=== PATIENT | female | born 1990 | race Caucasian/White ===

== ENCOUNTER → 2024-03-14 15:47 | Outpatient (REF) | payer BC, SELFPAY ==
[2024-03-14 17:39] LABS: % Basophils 0.7 % (0-2); % Eosinophils 1.6 % (0-6); % Immature Granulocytes 0.2 % (0-0.5); % Lymphocytes 37.2 % (20.5-51.1); % Monocytes 7.5 % (1.7-9.3); % Neutrophils 52.8 % (42.2-75.2); Absolute Eosinophils 0.1 10^3/uL (0-0.7); Absolute Monocytes 0.4 10^3/uL (0.1-0.6); Absolute Neutrophils 2.9 10^3/uL (1.4-6.5); Hematocrit 36.7 % (37.0-47.0); Hemoglobin 12.4 g/dL (12.0-16.0); Mean Corp Hgb Conc. 33.8 g/dL (33.0-37.0); Mean Corpuscular Hgb 29.2 pg (27.0-31.0); Mean Corpuscular Volume 86.4 fL (81.0-99.0); Mean Platelet Volume 10.8 fL (7.4-10.4); Nucleated Red Blood Cells % 0 %; Platelet Count 273 10^3/uL (130-400); Red Blood Cell Count 4.25 10^6/uL (4.20-5.40); Red Cell Dist. Width 12.7 % (11.5-14.5); White Blood Cell Count 5.5 10^3/uL (4.8-10.8)
[2024-03-14 18:01] LABS: ALT (SGPT) < 10 U/L (0-35); AST (SGOT) 19 U/L (14-36); Albumin 4.8 g/dl (3.5-5.0); Alkaline Phosphatase 46 U/L (38-126); Blood Urea Nitrogen 7 mg/dl (7-17); Calcium 9.9 mg/dl (8.4-10.2); Carbon Dioxide 27 mmol/L (22-30); Chloride 102 mmol/L (98-107); Glucose 86 mg/dl (70-99); HDL Cholesterol 74 mg/dl; LDL Cholesterol, Calculated 96 mg/dl; Potassium 4.6 mmol/L (3.5-5.1); Sodium 136 mmol/L (135-145); Total Bilirubin 0.9 mg/dl (0.2-1.3); Total Cholesterol 185 mg/dl (50-199); Total Protein 7.4 g/dl (6.3-8.2); Triglyceride 76 mg/dl (10-149); Very Low Density Lipoprotein 15 mg/dl (0-30); eGFR > 60.00
[2024-03-14 18:33] LABS: TSH Reflex To Free T4 1.49 uIU/ml (0.47-4.68)
[2024-03-14 18:38] LABS: Ferritin 8.9 ng/ml (6.24-137)
[2024-03-14 18:50] LABS: Hepatitis B Core Ab, Total Negative (Negative); Hepatitis B Surface Antibody Positive
[2024-03-14 19:09] LABS: Folate 19.8 ng/ml (2.76-20); Vitamin B12 589 pg/ml (239-931)
[2024-03-15 10:07] LABS: Glycohemoglobin (HgbA1c) 5.1 % (4.0-5.6)
[2024-03-17 04:08] LABS: Vitamin D 1,25 Dihydroxy 58.2 pg/mL (19.9-79.3)
== END ==
LOC: REG 15:47
PROVIDERS: ATTENDING PHYSICIAN Nurse Practitioner Family
DX: Z13.220 Encounter for screening for lipoid disorders (principal); Z13.29 Encounter for screening for other suspected endocrine disorder; Z13.1 Encounter for screening for diabetes mellitus; Z13.0 Encounter for screening for diseases of the blood and blood-forming organs and certain disorders involving the immune mechanism; Z13.21 Encounter for screening for nutritional disorder
CPT/HCPCS: 36415; 80053; 80061; 82607; 82652; 82728; 82746; 83036; 84443; 85025; 86704; 86706

== ENCOUNTER → 2024-04-17 10:46 | Outpatient (REF) | payer BC, SELFPAY | LOC: RAD 10:46 | PROVIDERS: ATTENDING PHYSICIAN Obstetrics & Gynecology; FAMILY PHYSICIAN Nurse Practitioner Family | DX: O26.851 Spotting complicating pregnancy, first trimester (principal) | CPT/HCPCS: 76801 ==

== ENCOUNTER → 2024-04-19 14:54 | Outpatient (REF) | payer BC, SELFPAY ==
[2024-04-19 16:45] LABS: % Basophils 0.5 % (0-2); % Eosinophils 1.5 % (0-6); % Immature Granulocytes 0.2 % (0-0.5); % Lymphocytes 33.1 % (20.5-51.1); % Neutrophils 58.7 % (42.2-75.2); Absolute Eosinophils 0.1 10^3/uL (0-0.7); Absolute Lymphocytes 1.8 10^3/uL (1.2-3.4); Absolute Monocytes 0.3 10^3/uL (0.1-0.6); Absolute Neutrophils 3.2 10^3/uL (1.4-6.5); Hemoglobin 13.3 g/dL (12.0-16.0); Mean Corp Hgb Conc. 34.1 g/dL (33.0-37.0); Mean Corpuscular Hgb 29.9 pg (27.0-31.0); Mean Corpuscular Volume 87.6 fL (81.0-99.0); Mean Platelet Volume 10.3 fL (7.4-10.4); Nucleated Red Blood Cells % 0 %; Platelet Count 307 10^3/uL (130-400); Red Blood Cell Count 4.45 10^6/uL (4.20-5.40); Red Cell Dist. Width 12.3 % (11.5-14.5); White Blood Cell Count 5.5 10^3/uL (4.8-10.8)
[2024-04-19 16:46] LABS: Urine Albumin Negative (Neg - Trace); Urine Bilirubin Negative (Negative); Urine Character Clear (Clear); Urine Color Yellow; Urine Glucose Negative (Negative); Urine Ketone Negative (Negative); Urine Leukocyte Negative (Negative); Urine Nitrite Negative (Negative); Urine Occult Blood 2+ (Negative); Urine Urobilinogen Negative (Neg - 1+)
[2024-04-19 17:00] LABS: Urine Bacteria Few (Negative); Urine White Cell 0-2 /HPF (0-5)
[2024-04-20 07:38] LABS: Glycohemoglobin (HgbA1c) 5.1 % (4.0-5.6)
[2024-04-20 18:30] LABS: Hepatitis B Surface Antigen Negative (Negative)
[2024-04-20 18:33] LABS: Hepatitis C Antibody Negative (Negative)
[2024-04-20 20:41] LABS: Rubella Positive
[2024-04-21 11:21] LABS: Syphilis/T. pallidum Ab Reflex Negative (Negative)
== END ==
LOC: REG 14:54
PROVIDERS: ATTENDING PHYSICIAN Nurse Practitioner Family
DX: Z32.01 Encounter for pregnancy test, result positive (principal)
CPT/HCPCS: 36415; 80055; 81003; 81015; 83036; 84702; 86803; 86850; 86900; 86901; 87086

== ENCOUNTER → 2024-04-21 06:26 | Outpatient (REF) | payer BC, SELFPAY | LOC: REG 06:26 | PROVIDERS: ATTENDING PHYSICIAN Nurse Practitioner Family; FAMILY PHYSICIAN Nurse Practitioner Family | DX: Z32.01 Encounter for pregnancy test, result positive (principal) | CPT/HCPCS: 36415; 84702 ==

== ENCOUNTER → 2024-08-01 07:57 | Outpatient (REF) | payer BC, SELFPAY ==
[2024-08-01 10:39] LABS: Hepatitis B Surface Antigen Negative (Negative)
[2024-08-01 10:58] LABS: Hepatitis B Core Ab, Total Negative (Negative); Hepatitis B Surface Antibody Positive
[2024-08-01 11:01] LABS: Urine Albumin Negative (Neg - Trace); Urine Bilirubin Negative (Negative); Urine Character Clear (Clear); Urine Color Yellow; Urine Glucose Negative (Negative); Urine Ketone Negative (Negative); Urine Leukocyte Trace (Negative); Urine Nitrite Negative (Negative); Urine Occult Blood Negative (Negative); Urine Urobilinogen Negative (Neg - 1+)
[2024-08-01 11:16] LABS: Urine Squamous Cell 16-20 /LPF (Few); Urine Urothelial Cell 0-2 /LPF (FEW)
[2024-08-01 11:17] LABS: Urine Bacteria Moderate (Negative)
[2024-08-01 11:59] LABS: Glycohemoglobin (HgbA1c) 4.9 % (4.0-5.6)
[2024-08-01 14:18] LABS: HIV Combo Negative (Negative)
== END ==
LOC: REG 07:57
PROVIDERS: ATTENDING PHYSICIAN Obstetrics & Gynecology; FAMILY PHYSICIAN Nurse Practitioner Family
DX: Z32.01 Encounter for pregnancy test, result positive (principal)
CPT/HCPCS: 36415; 81003; 81015; 83036; 86704; 86706; 86900; 86901; 87340; 87389

== ENCOUNTER → 2024-08-02 13:21 | Outpatient (REF) | payer BC, SELFPAY | LOC: CPAP 13:21 | PROVIDERS: ATTENDING PHYSICIAN Obstetrics & Gynecology | DX: Z11.3 Encounter for screening for infections with a predominantly sexual mode of transmission (principal) | CPT/HCPCS: 81513; 87481; 87491; 87591; 87661 ==

== ENCOUNTER → 2024-08-23 07:15 | Outpatient (REF) | payer BC, SELFPAY | LOC: PNTC 07:15 | PROVIDERS: ATTENDING PHYSICIAN Obstetrics & Gynecology | DX: Z36.0 Encounter for antenatal screening for chromosomal anomalies (principal); Z36.82 Encounter for antenatal screening for nuchal translucency | CPT/HCPCS: 36415; 76801; 76813; 81420 ==

== ENCOUNTER → 2024-11-22 08:49 | Outpatient (REF) | payer BC, SELFPAY ==
[2024-11-22 10:54] LABS: % Immature Granulocytes 0.2 % (0-0.5); % Lymphocytes 33.3 % (20.5-51.1); % Monocytes 5.1 % (1.7-9.3); % Neutrophils 59.4 % (42.2-75.2); Absolute Eosinophils 0.1 10^3/uL (0-0.7); Absolute Lymphocytes 1.5 10^3/uL (1.2-3.4); Absolute Monocytes 0.2 10^3/uL (0.1-0.6); Absolute Neutrophils 2.7 10^3/uL (1.4-6.5); Hemoglobin 10.8 g/dL (12.0-16.0); Mean Corp Hgb Conc. 33.8 g/dL (33.0-37.0); Mean Corpuscular Hgb 30.5 pg (27.0-31.0); Mean Corpuscular Volume 90.4 fL (81.0-99.0); Mean Platelet Volume 10.8 fL (7.4-10.4); Nucleated Red Blood Cells % 0 %; Platelet Count 192 10^3/uL (130-400); Red Blood Cell Count 3.54 10^6/uL (4.20-5.40); Red Cell Dist. Width 12.6 % (11.5-14.5); White Blood Cell Count 4.5 10^3/uL (4.8-10.8)
[2024-11-22 11:22] LABS: 1 Hour after 50gm 124 mg/dl
[2024-11-24 11:39] LABS: Syphilis/T. pallidum Ab Reflex Negative (Negative)
== END ==
LOC: REG 08:49
PROVIDERS: ATTENDING PHYSICIAN Obstetrics & Gynecology; FAMILY PHYSICIAN Nurse Practitioner Family
DX: Z34.93 Encounter for supervision of normal pregnancy, unspecified, third trimester (principal)
CPT/HCPCS: 36415; 82950; 85025; 86780

== ENCOUNTER → 2025-02-07 08:29 | Outpatient (REF) | payer BC, SELFPAY | LOC: CLAB 08:29 | PROVIDERS: ATTENDING PHYSICIAN Obstetrics & Gynecology | DX: Z36.85 Encounter for antenatal screening for Streptococcus B (principal); Z34.90 Encounter for supervision of normal pregnancy, unspecified, unspecified trimester | CPT/HCPCS: 87070 ==

== ENCOUNTER 2025-02-18 17:02 | Emergency (ER) | payer BC, SELFPAY ==
[2025-02-18 17:05] VITALS: BP 143/88
[2025-02-18 17:09] VITALS: BMI 25.3
--- NOTE | 2025-02-18 17:22 | ED.GENMED ---
History of Present Illness
General
Chief Complaint: Cardiac Symptoms
Source: patient
Time Seen by Provider: 02/18/25 17:12
History of Present Illness
History of Present Illness:
32-year-old female presents emergency room for evaluation after having an episode of SVT which caused her to pass out. Patient is about 38 weeks . She contacted her OB who referred her to the emergency and checked out. Patient states she
was going through her day normally when she developed palpitations. She did pass out but landed on the couch. She did not suffer any injuries. Patient felt like her SVT broke shortly after she came to. Currently she feels back to baseline.
Patient has had intermittent episodes of SVT since she was about 21. Episodes have been few and far between up until recently. She had an event 2 weeks ago and 1 short time prior to that. She does not take any medications. She has not seen a
range master since she was first diagnosed.
Phy Exam
Physical Exam
Physical Exam:
General: Awake, Alert, Oriented X3. No acute distress.
Vitals: unremarkable
Head: Atraumatic
Eyes: Pupils equal, EOMI
Throat: Airway intact, no exudates
Neck: Trachea midline
Lungs: Clear and equal b/l
Heart: Regular rate, no murmurs
Abd: Soft, Nontender, No pulsatile mass
Neuro: Nonfocal
Skin: Warm, dry, no rash
Extremities: pulses equal b/l, no edema
Course
Orders/Labs/Results
Orders:
Orders
02/18/25 17:09
EKG [Electrocardiogram (*1)] Urgent
Reason for Study: Vertigo / Dizzy
EKG- Treatment ONCE
02/18/25 17:13
0-2 Hours Monitor Urgent
Reason for Exam: syncope, 38 weeks preg
02/18/25 17:26
CMP [Comprehensive Metabolic Panel] Urgent
Complete Blood Count/With Diff Urgent
Abnormal Lab Results
02/18/25
17:26
RBC 3.70 L 10^6/uL
(4.20-5.40)
Hgb 10.9 L g/dL
(12.0-16.0)
Hct 32.4 L %
(37.0-47.0)
RDW 16.1 H %
(11.5-14.5)
MPV 11.0 H fL
(7.4-10.4)
Chloride 109 H mmol/L
(98-107)
BUN 4 L mg/dl
(7-17)
Creatinine 0.5 L mg/dL
(0.6-1.0)
02/18/25 17:26
02/18/25 17:26
Vital Signs
Initial and Last Documented VS:
Initial Vital Signs
Pulse Resp BP Pulse Ox
81 16 143/88 99
02/18/25 17:05 02/18/25 17:05 02/18/25 17:05 02/18/25 17:05
Last Documented Vital Signs
Pulse Resp BP Pulse Ox
79 20 125/71 98
02/18/25 19:30 02/18/25 19:30 02/18/25 19:00 02/18/25 19:00
MDM/Problems Addressed
Differential Diagnosis Includes:
SVT, A-fib, other dysrhythmia such as V. tach, vasovagal syncope
MDM/Problems Addressed:
Presents with syncope feeling that she was in SVT. Patient has had SVT for many years though she typically has very rare events and they are typically short-lived. Today we will enter her home she had a sudden onset of palpitations typical of her
previous episodes. However this time she had a syncopal episode that she is never had before. She landed onto a couch and had no injuries. Workup here reveals labs which are not concerning. EKG is sinus rhythm but there are some T wave
inversions anteriorly. We do not have an old EKG to compare to. I discussed the patient's presentation with cardiology Dr. Romo who is also electrophysiology. Given that she had syncope he recommends that the patient be admitted to L&D and have
an induction of her as he feels she is at high risk for developing further syncope or cardiomyopathy. Case discussed with Dr. Washington who accepts the patient to L&D. Patient had no dysrhythmias while being observed here in
the emergency room. She was also placed on monitoring which was monitored up in L&D.
Chronic conditions affecting care: Arrhythmia (SVT)
*Pulse Oximetry
SaO2: 99
Oxygen Mode of Delivery: Room air
Patient hypoxic: no
*EKG
Interpreted by ED Provider?: Yes
Heart Rate: 73
Rate: normal
Rhythm: sinus
Ischemia: T-wave inversion (V1, V2, V3 without ST depression)
*Director Of Medical Services Interpretation
Rate: normal
Interpretation: normal
Rhythm: sinus
*Critical Care Note
Total Time (30-74mins, 75-104mins- exclusive of procedures): 33 min
comment:
Critical care statement: A total of 33 minutes of critical care time was provided for this patient. This includes management of unstable vital signs, evaluation of the patient at bedside, reviewing the patient's pertinent medical records, discussion
with consultants, review of old EKGs and review of pertinent medical records. This time with separate from time utilized to perform the aforementioned documented procedures
ED Attending Note
-
Portions of this chart may have been created with voice recognition software.� Occasional wrong word or��sound alike� substitutions may have occurred due to the inherent limitations of voice recognition software.
Discharge Plan
Departure
Patient Disposition: LDRP
Date of Disposition: 02/18/25
Time of Disposition: 18:43
Admit to: Telemetry
Presentation/result/management discussed w/ accepting MD/DO: Dr Washington
Condition: Fair
Discharge Problem:
Syncope, Paroxysmal SVT (supraventricular tachycardia), 38 weeks gestation of
Prescriptions:
No Action
ferrous sulfate 325 mg (65 mg iron) Tablet
325 mg PO DAILY
PNV no.95-ferrous fumarate-FA [] 28 mg iron- 800 mcg Tablet
1 tab PO DAILY
Referrals:
Jossy Hernandez CRNP [Family Provider, Family Practice]
Interventions
Interventions:
*Risk Screen - Suicide Last Done: 02/18/25 17:09
*General Assessment Last Done: 02/18/25 17:09
*Neglect/Abuse Screening Last Done: 02/18/25 17:09
*ED- Fall Risk Assessment Last Done: 02/18/25 17:09
*ED COVID-19 Vaccine History Last Done: 02/18/25 17:09
*Nursing Disposition Last Done: 02/18/25 19:36
ED- Pulmonary Assessment Last Done: 02/18/25 17:09
ED- Cardiac Assessment Last Done: 02/18/25 17:09
Discharge Date and Time
Discharge Date/Time: 02/18/25 19:37
Print Language: THAI
[2025-02-18 17:35] LABS: Hematocrit 32.4 % (37.0-47.0); Hemoglobin 10.9 g/dL (12.0-16.0); Mean Corp Hgb Conc. 33.6 g/dL (33.0-37.0); Mean Corpuscular Volume 87.6 fL (81.0-99.0); Nucleated Red Blood Cells % 0 %; Platelet Count 166 10^3/uL (130-400); Red Cell Dist. Width 16.1 % (11.5-14.5)
[2025-02-18 17:57] LABS: ALT (SGPT) 10 U/L (0-35); AST (SGOT) 17 U/L (14-36); Albumin 3.9 g/dl (3.5-5.0); Alkaline Phosphatase 126 U/L (38-126); Blood Urea Nitrogen 4 mg/dl (7-17); Calcium 9.2 mg/dl (8.4-10.2); Carbon Dioxide 22 mmol/L (22-30); Chloride 109 mmol/L (98-107); Estimated Creatinine Clearance > 125 ml/min; Glucose 80 mg/dl (70-99); Potassium 4.0 mmol/L (3.5-5.1); Sodium 137 mmol/L (135-145); Total Protein 6.6 g/dl (6.3-8.2); eGFR > 60.00
[2025-02-18 18:00] VITALS: BP 114/66
[2025-02-18 19:00] VITALS: BP 125/71
== END 2025-02-18 19:37 ==
LOC: EMR 17:02
PROVIDERS: EMERGENCY PHYSICIAN Emergency Medicine; FAMILY PHYSICIAN Nurse Practitioner Family
DX: O99.891 Other specified diseases and conditions complicating pregnancy (principal); I47.19 Other supraventricular tachycardia; Z3A.38 38 weeks gestation of pregnancy
CPT/HCPCS: 80053; 85025; 93005; 99291

== ENCOUNTER 2025-02-18 19:31 | Inpatient (IN) | payer BC, SELFPAY ==
[2025-02-18 19:41] VITALS: BMI 25.2
[2025-02-18 19:59] VITALS: BP 121/72
--- NOTE | 2025-02-18 20:57 | CON.CAR ---
Consultation
Consultation Request
Date/Time Consultation Requested: 02/18/2025
Date/Time Consultation Performed: 02/18/2025
Reason for Consultation: Syncope
Medical History
-
Chief Complaint: Syncope
History of Present Illness:
Mrs. Palacios is a 34-year-old woman 3 para 2 who is 38-week with a longstanding history of SVT. Patient has an Apple Watch and has been recording her SVTs which has been increasing in intensity in the last few months. Patient has
minimal arrhythmias during her first 2 pregnancies but this last third trimester of her third , she is having frequent episodes of SVTs. Patient's previous SVTs were pretty fast with a heart rate 150s to 170s beats per minute but lasted
only for less than 30 seconds and she has been able to record the termination on her Apple Watch as well.
Today, she was sitting and having a cup of coffee when she suddenly lost consciousness after feeling dizzy for few seconds. She lost her consciousness and slumped back dropping her coffee. Her witnessed it and try to wake her up almost
immediately. According to him she has lost for 10 to 15 seconds.
Patient woke up to her screaming. She reported that she continued to have palpitations after that as well with abrupt stopping afterwards. She has never had loss of consciousness with her palpitations before. Patient was not wearing her
Apple Watch today during her episode of syncope.
Patient is on no medications. She only takes caffeinated beverages on an occasional basis.
Patient's prior EKGs on her Apple Watch were reviewed. Patient's 1 EKG shows narrow complex QRS at 145 to 150 bpm with unchanged QRS during and after the resolution in sinus rhythm. Patient's second EKG shows wide QRS with heart rate in 160s with
the termination also recorded with normal sinus rhythm and narrow QRS. Possibility of SVT with aberrancy was highly likely as patient herself reported minimal symptoms other than dizziness during that episode.
Past Medical History
Past Medical History: Arrhythmias (SVT)
Social History
Tobacco: Non-Smoker
Alcohol: None
Personal:
Living: With Family
Family History
Family History: Reviewed & Not Pertinent
Allergies / Home Medications
Allergy/AdvReac Type Severity Reaction Status Date / Time
No Known Allergies Allergy Verified 02/18/25 19:42
�Medication �Instructions �Recorded �Confirmed �Type
ferrous sulfate 325 mg (65 mg 325 mg PO DAILY Supplement 02/18/25 02/18/25 History
iron) tablet
vit no.95-ferrous 1 tab PO DAILY Supplement 02/18/25 02/18/25 History
fumarate 28 mg-folic acid 800 mcg
tablet ()
Review of Systems
-
All other systems: Negative unless noted
Physical Exam
Vital Signs
Temp Pulse Resp BP Pulse Ox
98.4 F 91 18 121/72 99
02/18/25 19:59 02/18/25 19:59 02/18/25 19:59 02/18/25 19:59 02/18/25 19:59
Physical Exam
General: Well Developed, Well Nourished and No Apparent Distress
HEENT: Normocephalic and Anicteric
Respiratory: Clear and Non Labored Respirations
Cardiac: S1/S2, Regular Rhythm and Peripheral Edema; Negative Murmur
GI: Soft, Normal Bowel Sounds and Other
Musculoskeletal: No Clubbing, No Cyanosis and Edema
Skin: Warm and Dry
Neuro: Awake, Alert, Oriented, AO x 3 and No Motor Deficits
Impression / Plan
-
34-year-old woman 3 para 2 at 38-week of with history of paroxysmal supraventricular tachycardia with recurrent arrhythmias in the last few weeks. Presented today with episode of syncope.
Syncope
Patient has a frequent history of SVTs especially in the last few weeks.
Patient's home recording shows narrow complex SVT, possibility of atrial tachycardia versus AVNRT. Patient's second EKG shows wide QRS complex during her tachycardia which could be SVT with aberrancy versus ventricular tachycardia. A single lead EKG
with Apple Watch was not clear enough to differentiate SVT from VT during that recording.
SVT usually is not likely to cause syncope but with reduced venous return with high intra-abdominal pressure with fully gravid uterus, SVT potentially can cause hypoperfusion to the level of loss of consciousness.
Will obtain bedside echo to rule out any significant peripartum cardiomyopathy as well as pericardial effusions.
Bed side ECHO is done
LVEF 60-70% without any significant wall motion abnormality. There is mild pericardial effusion - probably normal for . No tamponade
EKG is normal with no evidence of pre-excitation
With presence of syncope, the hypoperfusion associated with her arrhythmia is concerning for the mother and the baby and has high risk of recurrence. The is almost at term at 38 weeks and would consider induction to avoid any potential
risk for both mom and the baby.
Case discussed with ER and the OB and plan for induction.
Telemetry peripartum
Full ECHO tomorrow likely after delivery
l
Data Reviewed
-
EKG: Tracing Personally Visualized and interpreted, Report Reviewed by me, Discussed with Physician, Discussed with Nurse, Discussed with Patient and Discussed with Family
Medical Tests (Nuc Med, Echo etc): Image Personally Visualized and interpreted
Labs: Labs Reviewed by me
Old Records: Reviewed
[2025-02-18] MEDS: CYTOTEC 25 MICROGRAM VAG (21:59)
--- NOTE | 2025-02-18 22:54 | PTCARENOTE ---
This MIXING TANK OPERATOR placed patient on telemetry per MD order. Pt in bed with spouse at bedside, no apparent distress or discomfort. Pt is AAO3, denies lightheadedness/CP/dizziness. Heart tones are regular. Lung sounds are clear throughout. Placed on tele
box #1. Will monitor cardiac rhythm closely.
[2025-02-19] MEDS: LR 1000 IV (01:39)
[2025-02-19] MEDS: FENTANYL/BUPIVACAINE 100 EPIDURAL (02:01)
[2025-02-19] MEDS: SUBLIMAZE 100 MCG EPIDURAL (02:01)
[2025-02-19] MEDS: MOTRIN 600 MG PO ×3 (04:36→15:07)
[2025-02-19] MEDS: TYLENOL 650 MG PO (04:36)
--- NOTE | 2025-02-19 07:44 | PTCARENOTE ---
Focused cardiac assessment performed by this RN. Denies dizziness/lightheadedness. Normal heart tones. SB on monitor; tele strip placed on chart. No further episodes of SVT @ this time. In communication w DEREK RN @ bedside. Tele monitoring
from ICU ongoing.
[2025-02-19] MEDS: FEOSOL 325 MG PO (08:50)
[2025-02-19] MEDS: PRENATAL PLUS 1 TABLET PO (08:50)
[2025-02-19] MEDS: COLACE 100 MG PO ×2 (08:50→19:54)
--- NOTE | 2025-02-19 13:06 | W.PN.CD ---
Today's Communication / Plan
-
- Metoprolol 25 mg QD
- MCOT for 4 weeks at the time of discharge.
Impression / Plan
-
34-year-old woman 3 para 2 at 38-week of with history of paroxysmal supraventricular tachycardia with recurrent arrhythmias in the last few weeks. Presented today with episode of syncope.
Syncope
- SVT vs VT
- ECHO 02/19/25 - Normal
Patient's home recording shows narrow complex SVT, possibility of atrial tachycardia versus AVNRT. Patient's second EKG shows wide QRS complex during her tachycardia which could be SVT with aberrancy versus ventricular tachycardia. A single lead EKG
with Apple Watch was not clear enough to differentiate SVT from VT during that recording.
SVT usually is not likely to cause syncope but with reduced venous return with high intra-abdominal pressure with fully gravid uterus, SVT potentially can cause hypoperfusion to the level of loss of consciousness.
EKG is normal with no evidence of pre-excitation
now s/p delivery 02/19/29 - Both patient and her baby girl are doing well.
No more episodes of tachycardia.
Given the possibility of SVT vs VT, would recommend starting Toprol 25 mg QD
Plan for 4 week MCOT at the time of discharge.
l
Physical Exam
Vital Signs/Labs
Vital Signs
Temp Pulse Resp BP Pulse Ox
98.4 F 91 18 121/72 99
02/18/25 19:59 02/18/25 19:59 02/18/25 19:59 02/18/25 19:59 02/18/25 19:59
02/18/25 02/19/25 02/20/25
06:59 06:59 06:59
Actual Weight 73.028 kg
Physical Exam
Constitutional: No acute distress and Comfortable
EENT: Anicteric and Moist mucous membranes
Cardiovascular: Rhythm & rate is regular, Pedal edema is absent and JVD pressure is normal
Respiratory: Respiratory effort normal and Wheeze Absent
Neuro/Psych: Alert, Oriented, AO x 3 and Motor deficits absent
Data Reviewed
-
Date of Service: February 19, 2025
Medical Decision Making: Reviewed Test Results, Test Interpretation and Review of Case with other Provider
EKG: Tracing Personally Visualized and interpreted
Echo: Tracing Personally Visualized and interpreted
Labs: Labs Reviewed by me
Old Records: Reviewed
--- NOTE | 2025-02-19 21:27 | PTCARENOTE ---
Focused cardiac assessment done, S1 S2 heart sounds auscultated, lungs clear on RA, no c/o chest pain, SOB, or palpitations. Pt has been SR 60s-80s on monitor. Remote telemetry monitoring ongoing in ICU, tele strip placed in chart.
[2025-02-20] MEDS: MOTRIN 600 MG PO ×2 (00:09→08:55)
[2025-02-20 05:46] LABS: Hematocrit 30.3 % (37.0-47.0); Hemoglobin 9.9 g/dL (12.0-16.0)
[2025-02-20] MEDS: FEOSOL 325 MG PO (08:54)
[2025-02-20] MEDS: PRENATAL PLUS 1 TABLET PO (08:54)
[2025-02-20] MEDS: COLACE 100 MG PO (08:54)
--- NOTE | 2025-02-20 09:29 | PTCARENOTE ---
Pt remotely monitored on tele in ICU-SB HR 58 upon am rounds. Focused cardiac assessment done, S1 S2 heart sounds auscultated, lungs clear on RA, no c/o chest pain, SOB, or palpitations. Pt is aox3 with no complaints, hoping for dc home today.
Monitoring ongoing-tele strip placed in chart.
[2025-02-20 12:56] LABS: Syphilis/T. pallidum Ab Reflex Negative (Negative)
== END 2025-02-20 11:35 | disposition home or self-care (01) | DRG 806 ==
LOC: LDRP 19:31
PROVIDERS: ADMITTING PHYSICIAN Obstetrics & Gynecology; FAMILY PHYSICIAN Nurse Practitioner Family
PROC: 3E0P7VZ Introduction of Hormone into Female Reproductive, Via Natural or Artificial Opening (ICD-10-PCS; 2025-02-18)
PROC: 10E0XZZ Delivery of Products of Conception, External Approach (ICD-10-PCS; 2025-02-19)
DX: O99.42 Diseases of the circulatory system complicating childbirth (principal); I47.10 Supraventricular tachycardia, unspecified; Z37.0 Single live birth; Z3A.38 38 weeks gestation of pregnancy
CPT/HCPCS: 80053; 85014; 85018; 85025; 86780; 86850; 86900; 86901; 88307; 93005; 93306